=== PATIENT | female | born 1970 | race Hispanic/Latino ===

== ENCOUNTER 2016-05-17 08:00 | Day surgery (SDC) | payer MEDICAID ==
[2016-05-17] MEDS ORDERED: DIPRIVAN 10 MG/ML IV ONE ×2 (08:59)
[2016-05-17] MEDS ORDERED: NACL 0.9% 1000 ML 1,000 ML IV SCH (10:00)
--- NOTE | 2016-05-17 11:01 | Anesthesia Consultation ---
Anesthesia Consult and Med Hx Date of service: 05/17/16 - Airway Anesthetic Teeth Evaluation: Edentulous ROM Head & Neck: Adequate Mental/Hyoid Distance: Adequate Mallampati Class: Class II Intubation Access Assessment: Probably Good - Pulmonary Exam CTA: Yes - Cardiac Exam Cardiac Exam: RRR - Pre-Operative Health Status ASA Pre-Surgery Classification: ASA3 Proposed Anesthetic Plan: MAC - Pulmonary Hx Smoking: Yes (1 ppd, marijuana daily) - Cardiovascular System Hx Hypertension: No - Central Nervous System Hx Seizures: Yes (marijuana controls well) Hx Psychiatric Problems: Yes - Gastrointestinal Hx Gastroesophageal Reflux Disease: Yes - Endocrine Hx Liver Disease: Yes (HEP C) - Hematic Hx Anemia: No Hx Sickle Cell Disease: No - Other Systems Hx Alcohol Use: Yes (liquor twice a week) Hx Substance Use: Yes (marijuana daily/EX-IV HEROIN USER > 20 years ago)
--- NOTE | 2016-05-17 11:01 | Anesthesia Day of Surgery ---
Anesthesia Day of Surgery - Day of Surgery Patient Examined: Yes Patient H&P Reviewed: Yes Patient is NPO: Yes
--- NOTE | 2016-05-17 11:08 | Operative Report ---
Operative Report Operative Report: Date: 05/17/2016 Operative Report: Date of procedure: 05/17/2016 Procedure: Esophagogastroduodenoscopy . Attending physician: Hunter Hartman MD Cyber Threat Analyst: Hunter Hartman MD Indication: Patient is a 45-year-old female who presented with a history of epigastric pain, indigestion/ gerd with dysphagia. Patient also with complaints of bloating and intestinal gas.. An upper endoscopy is done to assess patient regarding cause of her symptoms so that treatment may be directed based on the findings. Consent: Informed consent was obtained after advising the patient and family regarding nature of this procedure, its indications, potential benefits as well as possible complications including but not limited to bleeding perforation and adverse reaction to medication, infection as well as other cardiopulmonary complications. An informed written and verbal consent was then obtained after due opportunity was provided for questions and answers. Monitoring: Patient was monitored continuously with pulse oximetry and electrocardiographic recordings as well as blood pressure recordings. Vital signs remained stable throughout this procedure with no untoward events. Preoperative assessment: Patient was assessed immediately prior to this procedure for capacity to tolerate monitored anesthesia care and moderate sedation as well as general anesthesia. Patient's ASA classification is 2, Mallampati class is 2, Hyomental distance is 3. Instrument: Clip [employer] video endoscope Medications: Propofol given intravenously in divided doses. For details please refer to anesthesia records. Description of procedure: Patient was placed in the left lateral decubitus position after achieving sedation, endoscope was introduced into the esophagus marked was advanced beyond the esophagus into stomach and then to the second portion of the duodenum. It was withdrawn with careful inspection of all mucosal surfaces with the following findings. Findings: There is mild erosive esophagitis involving the distal esophagus. There was a non-luminally occluding ring, that forms somewhat on advancing the endoscope through the esophagus but did not appear permanent.. There was a 2 cm sliding hiatal hernia seen on entry into the stomach. There was substantial retained gastric contents seen. This contains mostly old food occupying most of the gastric body and antrum. There are however no gross mucosal abnormalities seen in the antrum. The duodenum was normal to second portion. Impression: Mild erosive esophagitis Hiatal hernia. Retained gastric contents. Plan: Obtain a gastric emptying study to rule out gastroparesis. Observe patient clinically otherwise.
--- NOTE | 2016-05-17 11:29 | Discharge Summary ---
Short Stay Discharge Plan Activity: advance as tolerated Weight Bearing Status: Weight Bear as Tolerated Diet: regular Follow up with: NAVJOT FUENTES DO [Primary Care Provider] - 7 Days
[2016-05-17] MEDS ORDERED: WATER FOR IRRIG STERILE IR ONE (11:38)
[2016-05-17] MEDS ORDERED: XYLOCAINE MPF 2% ONE (12:11)
--- NOTE | 2016-05-17 12:38 | Post Anesthesia Evaluation ---
- Post Anesthesia Evaluation Patient Participated: Yes Airway Patent: Yes Stable Respiratory Function: Yes Nausea/Vomiting: No Temp > 96.8F: Yes Pain Manageable: Yes Adequeate Hydration: Yes Anesthesia Complications: No Block Receding Appropriately: Not Applicable Patient on Ventilator: No
--- NOTE | 2016-05-17 12:45 | Operative Report ---
Operative Report Operative Report: Date: 05/17/2016 Operative Report: Date of procedure: 05/17/2016 Procedure: Esophagogastroduodenoscopy with multiple mucosal biopsies Attending physician: Hunter Hartman MD Aeronautical Research Engineer: Hunter Hartman MD Indication: Patient is a 45-year-old female who presented with a history of epigastric pain, heartburn and indigestion. An upper endoscopy is done to assess patient regarding cause of her symptoms so that treatment may be directed based on the findings. Consent: Informed consent was obtained after advising the patient and family regarding nature of this procedure, its indications, potential benefits as well as possible complications including but not limited to bleeding perforation and adverse reaction to medication, infection as well as other cardiopulmonary complications. An informed written and verbal consent was then obtained after due opportunity was provided for questions and answers. Monitoring: Patient was monitored continuously with pulse oximetry and electrocardiographic recordings as well as blood pressure recordings. Vital signs remained stable throughout this procedure with no untoward events. Preoperative assessment: Patient was assessed immediately prior to this procedure for capacity to tolerate monitored anesthesia care and moderate sedation as well as general anesthesia. Patient's ASA classification is 2, Mallampati class is 2, Hyomental distance is 3. Instrument: [employer] video endoscope Medications: Propofol given intravenously in divided doses. For details please refer to anesthesia records. Description of procedure: Patient was placed in the left lateral decubitus position after achieving sedation, the endoscope was introduced into the esophagus under direct vision. It was then advanced beyond the esophagus into the stomach and then beyond the stomach into the duodenum and to the second portion of the duodenum. It was subsequently withdrawn with careful inspection of all mucosal surfaces with the following findings. Findings: There was mild erosive esophagitis involving the distal esophagus. The Z line was irregular. There were multiple erosions seen in the gastric antrum with also multiple small gastric ulcers seen. There was erythema and erosions in the gastric antrum. Biopsies of the antrum were obtained for histopathology. The duodenum was normal to second portion. Impression: Irregular Z line. Mild erosive esophagitis. Mucosal changes suggestive of gastritis. Multiple small/diminutive gastric ulcers in the antrum. Plan: Follow pathology report. Continue current medication Direct additional treatment based on the pathology report.
[2016-05-17 12:55] VITALS: BP 104/57
== END 2016-05-17 08:01 | disposition home or self-care (01) ==
LOC: GIO 08:00
PROVIDERS: ATTEND Internal Medicine Gastroenterology
DX: K29.50 Unspecified chronic gastritis without bleeding (principal); K22.8 Other specified diseases of esophagus; K25.9 Gastric ulcer, unspecified as acute or chronic, without hemorrhage or perforation; K21.0 Gastro-esophageal reflux disease with esophagitis; F41.9 Anxiety disorder, unspecified; M19.90 Unspecified osteoarthritis, unspecified site; I10 Essential (primary) hypertension; B19.20 Unspecified viral hepatitis C without hepatic coma; F12.90 Cannabis use, unspecified, uncomplicated; F17.210 Nicotine dependence, cigarettes, uncomplicated; Z72.89 Other problems related to lifestyle; Z83.79 Family history of other diseases of the digestive system
CPT/HCPCS: 43239; 88305; 88342; J2704

== ENCOUNTER 2017-04-21 02:59 | Emergency (ER) | payer MEDICAID ==
[2017-04-21 05:03] LABS: Basophils # (Auto) 0.1 K/mm3 (0.0-0.1); Basophils % (Auto) 0.9 % (0.0-1.8); Eosinophils # (Auto) 0.1 K/mm3 (0.0-0.4); Hemoglobin 12.6 gm/dl (10.1-14.3); Lymphocytes # (Auto) 2.6 K/mm3 (1.2-5.4); Lymphocytes % (Auto) 25.9 % (13.4-35.0); Mean Corpuscular HGB Conc 33 % (30-34); Mean Corpuscular Hemoglobin 33 pg (28-32); Mean Corpuscular Volume 99 fl (79-97); Monocytes # (Auto) 1.2 K/mm3 (0.0-0.8); Monocytes % (Auto) 12.2 % (0.0-7.3); Platelet Count 271 K/mm3 (140-440); Red Blood Count 3.85 M/mm3 (3.65-5.03); Red Cell Distribution Width 18.2 % (13.2-15.2)
[2017-04-21 05:18] LABS: Albumin 2.7 g/dL (3.9-5)
[2017-04-21 05:30] LABS: Alanine Aminotransferase 24 units/L (7-56); BUN/Creatinine Ratio 7; Blood Urea Nitrogen 2 mg/dL (7-17); Calcium 8.1 mg/dL (8.4-10.2); Hemolysis Index 4
[2017-04-21] MEDS ORDERED: ATIVAN IV ONE (06:46)
[2017-04-21] MEDS ORDERED: ZOFRAN IV ONE ×2 (06:46→13:44)
[2017-04-21] MEDS ORDERED: NACL 0.9% 1000 ML 1,000 ML IV ONE (06:46)
[2017-04-21] MEDS ORDERED: TORADOL IV ONE ×2 (06:47→17:42)
[2017-04-21 06:53] LABS: Bilirubin,Urine NEG (Negative); Blood,Urine NEG (Negative); Color,Urine Yellow (Yellow); Protein,Urine <15 mg/dL mg/dL (Negative); Urobilinogen,Urine < 2.0 mg/dL (<2.0); WBC,Urine < 1.0 /HPF (0.0-6.0)
[2017-04-21 07:01] LABS: Amphetamine Screen,Urine PRESUMPTIVE NEGATIVE; Benzodiazepines Screen,Urine PRESUMPTIVE NEGATIVE; Cocaine Screen,Urine PRESUMPTIVE NEGATIVE; Methadone Screen,Urine PRESUMPTIVE NEGATIVE; Opiate Screen,Urine PRESUMPTIVE NEGATIVE
[2017-04-21 07:14] LABS: Cannabinoid Screen,Urine PRESUMPTIVE POSITIVE
[2017-04-21] MEDS ORDERED: VITAMIN B-1 100 MG, FOLVITE 1 MG, INFUVITE 10 ML in NACL 0.9% 1000 ML 1,000 ML IV ONE (08:00)
--- NOTE | 2017-04-21 09:08 | Emergency Department Report ---
HPI - General Chief Complaint: Alcohol Time Seen by Provider: 04/21/17 06:19 - HPI HPI: The patient's 46-year-old female who presents for evaluation of altered mental status and headache. The patient reports binge drinking last night and experiencing a constant mild to moderate severity achy generalized headache since, onset approximately 4 hours prior to my evaluation. The patient's roommate submits that the patient stumbled and fell to the ground and struck her head secondary to her intoxication. The patient denies fever, neck pain or neck stiffness, vision or hearing changes, smell or taste changes, paresthesias , facial drooping, slurred speech, seizure-like activity, urine or bowel incontinence or retention, or other focal neurological deficit. ED Past Medical Hx - Past Medical History Previous Medical History?: Yes Hx Hypertension: No Hx GERD: Yes Hx Liver Disease: Yes (HEP C) Hx Sickle Cell Disease: No Hx Arthritis: Yes (knees, legs, and hips per pt.) Hx Seizures: Yes (marijuana controls well) Additional medical history: SYPHILLIS - Surgical History Past Surgical History?: Yes Additional Surgical History: tonsils, tubaligation - Social History Smoking Status: Current Every Day Smoker Substance Use Type: Alcohol, Marijuana ED Review of Systems ROS: Stated complaint: ETOH Other details as noted in HPI Constitutional: denies: fever ENT: denies: throat or neck pain Respiratory: denies: cough, shortness of breath Cardiovascular: denies: chest pain Endocrine: denies unexplained weight loss or gain Gastrointestinal: denies: abdominal pain, nausea Genitourinary: denies: dysuria Musculoskeletal: denies: leg swelling Skin: denies: rash Neurological: reports: headache Hematological/Lymphatic: denies: easy bleeding or easy bruising Psych: denies sadness or hopelessness Physical Exam - Physical Exam Vital Signs: Vital Signs 04/21/17 04/21/17 04/21/17 04:35 04:41 04:44 Temperature 97.6 F Pulse Rate 82 Respiratory 17 18 Rate Blood Pressure 99/68 O2 Sat by Pulse 98 98 Oximetry 04/21/17 04/21/17 04/21/17 05:00 05:30 06:00 Temperature Pulse Rate 89 89 Respiratory 25 H 26 H 16 Rate Blood Pressure 102/67 104/71 116/94 O2 Sat by Pulse 92 91 95 Oximetry 04/21/17 04/21/17 04/21/17 06:31 07:01 07:31 Temperature 98.9 F Pulse Rate 80 Respiratory 19 Rate Blood Pressure 116/94 116/94 124/84 O2 Sat by Pulse 99 95 99 Oximetry 04/21/17 04/21/17 08:00 08:07 Temperature Pulse Rate 88 Respiratory 23 23 Rate Blood Pressure 117/85 O2 Sat by Pulse 92 Oximetry Physical Exam: General: well-nourished, well-developed Head: Normocephalic, 2cm superficial forehead contusion present Eyes: normal sclera, EOMI, PERRL ENT: Mucous membranes are pale and dry Neck: No neck stiffness, no cervical adenopathy Respiratory: Breath sounds equal bilaterally, no wheezing, rales, or rhonchi Cardio: S1 and S2 present, no murmurs, rubs, gallops, capillary refill is delayed Abdomen: Normoactive bowel sounds, soft abdomen, no tenderness Chest WALL/Back: No tenderness to palpation of the chest wall, no CVA tenderness with percussion, no midline cervical, thoracic, or lumbar spinous tenderness Musc: Bruising and tenderness to the left shoulder present, no other tenderness or bruising to other extremities Skin: No rash Neuro: no facial drooping, alert and oriented to self and time, no obvious gross sensation and motor deficit in the extremities, reflexes 2+ symmetric on DTR testing Psych: patient belligerent, mildly slurred speech, poor insight, no suicidal or homicidal ideations ED Course Vital Signs 04/21/17 04/21/17 04/21/17 04:35 04:41 04:44 Temperature 97.6 F Pulse Rate 82 Respiratory 17 18 Rate Blood Pressure 99/68 O2 Sat by Pulse 98 98 Oximetry 04/21/17 04/21/17 04/21/17 05:00 05:30 06:00 Temperature Pulse Rate 89 89 Respiratory 25 H 26 H 16 Rate Blood Pressure 102/67 104/71 116/94 O2 Sat by Pulse 92 91 95 Oximetry 04/21/17 04/21/17 04/21/17 06:31 07:01 07:31 Temperature 98.9 F Pulse Rate 80 Respiratory 19 Rate Blood Pressure 116/94 116/94 124/84 O2 Sat by Pulse 99 95 99 Oximetry 04/21/17 04/21/17 08:00 08:07 Temperature Pulse Rate 88 Respiratory 23 23 Rate Blood Pressure 117/85 O2 Sat by Pulse 92 Oximetry ED Medical Decision Making - Lab Data Result diagrams: 04/21/17 04:44 04/21/17 04:44 - Medical Decision Making The patient was seen and examined by myself. The patient is placed on a hospital monitor and continuous pulse ox. On initial evaluation, the patient was found to be in no distress. Labs are obtained. The patient is given banana bag infusion for treatment of her dehydration and Tylenol for pain.. Lab results revealed elevated EtOH level of 0.2, and otherwise labs are grossly unremarkable. CT scan the head is negative for acute intracranial disease process. X-ray of the left shoulder is negative for acute fracture or dislocation. CT scan the facial bones is negative for emergent traumatic injury. Repeat EtOH level is performed and found to have downtrended to .10 from .23. The patient is monitored in the emergency department for > 8 hours. The patient was reevaluated and reported that their symptoms were markedly improved. The patient is stable for discharge with outpatient follow-up. The patient is given follow-up and return instructions. The patient expressed understanding and agreed with the plan. The patient is discharged in stable condition. Critical care attestation.: If time is entered above; I have spent that time in minutes in the direct care of this critically ill patient, excluding procedure time. ED Disposition Clinical Impression: Acute post-traumatic headache, not intractable, Dehydration, Acute pain of left shoulder due to trauma Alcohol intoxication Qualifiers: Complication of substance-induced condition: with delirium Qualified Code(s): F10.921 - Alcohol use, unspecified with intoxication delirium Disposition: TO HOME OR SELFCARE Is pt being admited?: No Does the pt Need Aspirin: No Condition: Stable Instructions: Migraine Headache (ED), Arthralgia (ED), Musculoskeletal Pain (ED ), Alcohol Intoxication (ED) Referrals: YANET RAMOS MD [Primary Care Provider] - 3-5 Days Time of Disposition: 09:13
[2017-04-21] MEDS ORDERED: NACL 0.9% 1000 ML 1,000 ML ONE (13:26)
--- NOTE | 2017-04-21 16:59 | Cat Scan Report ---
FINAL REPORT EXAM: CT HEAD/BRAIN WO CON HISTORY: fall TECHNIQUE: CT head without contrast PRIORS: None. FINDINGS: No acute intra-axial or extra-axial hemorrhage is identified. There is no evidence of midline shift or mass effect. The ventricles and sulci are within normal limits. Walsh-white matter differentiation is intact. No acute parenchymal abnormalities seen. Bony calvarium is grossly intact. Visualized portions of the mastoids and paranasal sinuses are unremarkable. IMPRESSION: Negative CT head
--- NOTE | 2017-04-21 17:02 | Cat Scan Report ---
FINAL REPORT EXAM: CT FACIAL BONES WO CON HISTORY: Fall TECHNIQUE: Maxillofacial CT with coronal and sagittal multiplanar reconstruction PRIORS: None. FINDINGS: The nasal bone is intact. The zygomatic arches are within normal limits. No evidence of fluid level within the paranasal sinuses. No intraorbital abnormalities seen. No facial fractures are identified. The TM joints and the mandible are within normal limits. IMPRESSION: Negative. No evidence of acute facial bone fracture.
--- NOTE | 2017-04-21 17:16 | XRay Report ---
FINAL REPORT EXAM: XR SHOULDER 2+V LT HISTORY: left shoulder pain, s/p injury TECHNIQUE: Three views left shoulder PRIORS: None. FINDINGS: No fractures are identified. No dislocation seen. The acromioclavicular joint is intact. Adjacent bony and soft tissue structures are unremarkable. IMPRESSION: Negative shoulder series
[2017-04-21] MEDS ORDERED: TYLENOL PO ONE (17:42)
[2017-04-21 19:12] VITALS: BP 109/71
== END 2017-04-21 19:50 | disposition home or self-care (01) ==
LOC: ED 02:59
DX: G44.319 Acute post-traumatic headache, not intractable (principal); E86.0 Dehydration; G89.11 Acute pain due to trauma; M25.512 Pain in left shoulder; F10.921 Alcohol use, unspecified with intoxication delirium; K21.9 Gastro-esophageal reflux disease without esophagitis; M19.90 Unspecified osteoarthritis, unspecified site; F17.200 Nicotine dependence, unspecified, uncomplicated; F12.10 Cannabis abuse, uncomplicated; Z91.09 Other allergy status, other than to drugs and biological substances; W18.00XA Striking against unspecified object with subsequent fall, initial encounter; Y93.89 Activity, other specified; Y99.8 Other external cause status; Y92.89 Other specified places as the place of occurrence of the external cause
CPT/HCPCS: 36415; 70450; 70486; 73030; 80053; 80307; 81001; 85025; 96361; 96365; 96366; 96375; 96376; 99285; G0480; J1885; J2060; J2405; J3411; J7030; 80320